=== PATIENT | male | born 1965 | race Caucasian/White ===

== ENCOUNTER 2021-01-16 08:27 | Emergency (ER) | payer MEDICARE, OTHER ==
[~2021-01-16 08:27] MED LIST: ASPIRIN CHEWABL81 MG PO; BACTRIM DS TAB1 EACH PO; FENOFIBRATE160 MG PO; FISH OIL 1,0001 EACH PO; GLUCOPHAGE1000 MG PO; LANTUS SOL100 UNIT/1 SQ; LISINOPRIL10 MG PO; MOBIC15 MG PO; NEURONTIN 300300 MG PO; NOVOLOG FL100 UNIT/1 SQ; OSCAL 500 + D TA1 EA PO; OXYCODONE HCL10 MG PO; SINGULAIR10 MG PO; SYNTHROID 137137 MCG PO; TIZANIDINE HCL2 M1 PO; TOUJEO SQ; VITAMIN B-121000 MC3 PO
[2021-01-16] MEDS ORDERED: MEDROL DOSEPAK 24 MG PO (11:36)
[2021-01-16] MEDS ORDERED: CYCLOBENZAPRINE10 MG PO (11:36)
== END 2021-01-16 11:21 | disposition home or self-care (01) ==
LOC: ER1 08:27
DX: M50.10 Cervical disc disorder with radiculopathy, unspecified cervical region (principal); E11.9 Type 2 diabetes mellitus without complications; E78.5 Hyperlipidemia, unspecified; I10 Essential (primary) hypertension
CPT/HCPCS: 72125; 96372; 99283; J1100; J1885